=== PATIENT | female | born 1990 | race Two or more races ===

== ENCOUNTER 2021-06-18 06:30 | Inpatient (IN) ==
[2021-06-18] MEDS ORDERED: ANCEF VIAL 1 GRAM IVP ONE (06:40)
[2021-06-18] MEDS ORDERED: NS 100 ML IV 100 ML ONE (06:54)
[2021-06-18] MEDS ORDERED: LR 1,000 ML IV 1,000 ML IV ONE ×2 (06:55→07:37)
[2021-06-18] MEDS ORDERED: D5 1/2 NS 1,000 ML 1,000 ML IV SCH (07:00)
[2021-06-18] MEDS ORDERED: DILAUDID INJ ONE (07:15)
[2021-06-18] MEDS ORDERED: PEPCID 20 MG VIAL ONE (07:16)
[2021-06-18] MEDS ORDERED: MARCAINE SPINAL ONE (07:16)
[2021-06-18] MEDS ORDERED: ZOFRAN INJ 4 MG VIAL ONE (07:16)
[2021-06-18] MEDS ORDERED: REGLAN INJ 10 MG VIAL ONE (07:16)
[2021-06-18] MEDS ORDERED: XYLOCAINE 2 % (PLAIN) ONE (07:17)
[2021-06-18] MEDS ORDERED: ANCEF VIAL 1 GRAM ONE (07:24)
[2021-06-18 07:27] LABS: BASOPHILS % (AUTO) 0.4 % (0.2-1.0); EOSINOPHILS # (AUTO) 0.1 x10^3/uL (0.0-0.2); EOSINOPHILS % (AUTO) 0.5 % (0.9-2.9); HEMATOCRIT 37.6 % (36.0-47.0); HEMOGLOBIN 12.5 g/dL (12.0-16.0); LYMPHOCYTES # (AUTO) 2.1 X10^3/uL (1.3-2.9); LYMPHOCYTES % (AUTO) 18.7 % (21.0-51.0); MEAN CORPUSCULAR HEMOGLOBIN 26.2 pg (27.0-34.0); MEAN CORPUSCULAR HGB CONC 33.2 g/dL (33.0-35.0); MEAN CORPUSCULAR VOLUME 78.9 fL (80.0-100.0); MEAN PLATELET VOLUME 10.8 fL (7.4-11.0); MONOCYTES # (AUTO) 0.7 x10^3/uL (0.3-0.8); MONOCYTES % (AUTO) 6.1 % (0.0-13.0); NEUTROPHILS # (AUTO) 8.4 x10^3/uL (2.2-4.8); NEUTROPHILS % (AUTO) 74.3 % (42.0-75.0); RED BLOOD COUNT 4.77 X10^6/uL (3.5-5.4); RED CELL DISTRIBUTION WIDTH 16.1 % (11.6-16.5); WHITE BLOOD COUNT 11.3 X10^3/uL (3.6-10.0)
[2021-06-18 07:44] LABS: ALANINE AMINOTRANSFERASE 16 Units/L (12-78); ALBUMIN 2.9 g/dL (3.4-5.0); ALKALINE PHOSPHATASE 133 Units/L (46-116); ASPARTATE AMINO TRANSFERASE 14 Units/L (15-37); BLOOD UREA NITROGEN 8 mg/dL (7-18); CALCIUM 8.6 mg/dL (8.5-10.1); CARBON DIOXIDE 20.1 mmol/L (21-32); CHLORIDE 105 mmol/L (98-107); COR CA(FOR HYPOALB) 9.5 mg/dL (8.5-10.1); CREATININE 0.55 mg/dL (0.55-1.02); SODIUM 137 mmol/L (136-145); TOTAL PROTEIN 7.1 g/dL (6.4-8.2); eGFR NON BLACK RACES > 60 (>60)
[2021-06-18] MEDS ORDERED: D5 1/2 NS 1,000 mL + PITOCIN 20 UNITS/L IV 20 UNITS/1,000 ML BAG IV ONE (07:57)
[2021-06-18] MEDS ORDERED: ROBINUL ONE (08:18)
[2021-06-18] MEDS ORDERED: PITOCIN ONE (08:35)
[2021-06-18] MEDS ORDERED: MYLICON TAB 80 MG CHEW PO PRN (09:07)
[2021-06-18] MEDS ORDERED: ADACEL or BOOSTRIX TDaP VACCINE IM ONE (09:07)
[2021-06-18] MEDS ORDERED: REGLAN INJ 10 MG VIAL IVP PRN ×2 (09:10→09:23)
[2021-06-18] MEDS ORDERED: NARCAN INJ IVP PRN (09:10)
[2021-06-18] MEDS ORDERED: ZOFRAN INJ 4 MG VIAL IVP PRN ×2 (09:10→09:23)
[2021-06-18] MEDS ORDERED: BENADRYL INJ 50 MG VIAL IVP PRN ×2 (09:10→09:23)
[2021-06-18] MEDS ORDERED: PERCOCET TAB 5/325 MG PO PRN (09:10)
[2021-06-18] MEDS ORDERED: STERILE WATER IRRIGATION IR ONE (09:20)
[2021-06-18] MEDS ORDERED: BARHEMSYS INJ IVP PRN (09:23)
[2021-06-18] MEDS ORDERED: PHENERGAN INJ 25 MG IM PRN (09:23)
[2021-06-18] MEDS ORDERED: D5 1/2 NS 1,000 ML 1,000 ML with PITOCIN 20 UNITS IV SCH ×2 (10:00)
[2021-06-18] MEDS: LR 1,000 ML IV 1,000 ML IV SCH ×2 (17:44→18:12)
[2021-06-19] MEDS: LR 1,000 ML IV 1,000 ML IV SCH (02:20)
[2021-06-19 05:27] LABS: HEMATOCRIT 31.2 % (36.0-47.0)
[2021-06-19 05:29] LABS: HEMOGLOBIN 10.3 g/dL (12.0-16.0)
[2021-06-19] MEDS: PRENATAL PLUS PO SCH (09:32)
[2021-06-19] MEDS: MOTRIN TAB 800 MG PO PRN (13:50)
[2021-06-19] MEDS: PERCOCET TAB 5/325 MG PO PRN (19:06)
[2021-06-20] MEDS ORDERED: ADACEL or BOOSTRIX TDaP VACCINE IM ONE (06:50)
[2021-06-20] MEDS: PERCOCET TAB 5/325 MG PO PRN (08:09)
[2021-06-20] MEDS: PRENATAL PLUS PO SCH (08:15)
[2021-06-20 09:44] VITALS: BP 107/54
[2021-06-20] MEDS ORDERED: MOTRIN TAB 800 MG PO ONE (14:25)
[2021-06-20] MEDS: MOTRIN TAB 800 MG PO PRN (14:29)
== END 2021-06-20 15:20 | disposition home or self-care (01) | DRG 785 ==
LOC: LD 06:30 → MED/SURG 09:56
PROVIDERS: ADMIT Obstetrics & Gynecology Obstetrics; ATTEND Obstetrics & Gynecology Obstetrics
DX: Z37.0 Single live birth; N85.8 Other specified noninflammatory disorders of uterus; O34.211 Maternal care for low transverse scar from previous cesarean delivery; Z30.2 Encounter for sterilization; Z3A.39 39 weeks gestation of pregnancy